=== PATIENT | female | born 2000 | race African-American/Black ===

== ENCOUNTER 2021-10-26 23:18 | Emergency (ER) | payer SELFPAY ==
[2021-10-27 01:48] LABS: Pregnancy Test - Urine (BHCG) Negative (Negative); Pregu Control Background? CLEAR/WHITE (CLR/WHITE); Pregu Control Bar Appear? YES (CONTROL BAR)
[2021-10-27 19:36] LABS: SARS-CoV-2 PCR by NAA DETECTED (NotDetected)
== END 2021-10-27 02:24 | disposition home or self-care (01) ==
LOC: CSHERS 23:18
DX: U07.1 COVID-19 (principal)
CPT/HCPCS: 81025; 87804; 99283; U0003; U0005

== ENCOUNTER 2022-03-28 14:22 | Emergency (ER) | payer SELFPAY | END 2022-03-28 15:31 | disposition left against medical advice (07) | LOC: CSHERS 14:22 | DX: Z53.21 Procedure and treatment not carried out due to patient leaving prior to being seen by health care provider (principal) ==

== ENCOUNTER 2024-12-27 08:39 | Emergency (ER) | payer OTHER, SELFPAY ==
[2024-12-27] MEDS ORDERED: Ondansetron PF 4 MG/2 ML Vial ONE (08:50)
[2024-12-27] MEDS ORDERED: Ondansetron ODT 4 MG TAB ONE (09:37)
[2024-12-27 09:51] LABS: #Basophils 0.03 10x3/uL (0.0-0.2); #Monocytes 0.46 10x3/uL (0.0-1.1); #Neutrophils 5.97 10x3/uL (1.5-8.4); %Basophils 0.4 % (0.0-2.0); %Eosinophils 5.1 % (0.0-6.0); %Lymphocytes 11.8 % (18.0-47.0); %Monocytes 5.9 % (0.0-10.0); %Neutrophils 76.5 % (40.0-75.0); Hematocrit 34.8 % (34.9-44.5); Hemoglobin 10.3 g/dL (12.0-15.5); Mean Corpuscular HGB CONC 29.6 g/dL (32.0-36.0); Mean Corpuscular Hemoglobin 24.9 pg (27.0-33.0); Mean Corpuscular Volume 84.1 fL (81.6-98.3); Mean Platelet Volume 10.8 fL (7.4-10.4); Platelet Count 307 10x3/uL (150-450); RBC Distribution Width 14.1 % (11.5-14.5); Red Blood Cell (RBC) Count 4.14 10x6/uL (3.90-5.03)
[2024-12-27 10:05] LABS: BHCG - Serum Negative (NEGATIVE); Pregs Control Background? CLEAR/WHITE (CLR/WHITE); Pregs Control Bar Appear? YES (CONTROL BAR)
[2024-12-27 10:13] LABS: ALT (SGPT) 28 U/L (Less than 34); AST (SGOT) 30 U/L (11-34); Alkaline Phosphatase 93 U/L (40-110); Anion Gap 12 mmol/L (10-20); BUN (Urea Nitrogen) 13 mg/dL (7.0-18.7); Bilirubin, Total 0.7 mg/dL (0.3-1.2); Calc. Creatinine Clearance 0 mL/min (70-130); Calcium 8.9 mg/dL (7.8-10.44); Carbon Dioxide 20 mmol/L (22-29); Chloride 108 mmol/L (98-107); Estimated GFR 108; Glucose 90 mg/dL (70-105); Lipase 14 U/L (8-78); Sodium 136 mmol/L (136-145)
== END 2024-12-27 10:49 | disposition home or self-care (01) ==
LOC: CSHERS 08:39
DX: R11.2 Nausea with vomiting, unspecified (principal)
CPT/HCPCS: 36415; 80053; 83690; 84703; 85025; 99284; J2405; Q0162